=== PATIENT | male | born 1960 | race Hispanic/Latino ===

== ENCOUNTER → 2021-11-10 | Day surgery (SDC) | payer OTHER ==
[~2021-11-10] MED LIST: GAVISCON 80-141 EACH PO; LIDOCAINE HCL 2% LOCAL INJ 5 ML SDV VIAL INJ ONE; LOSARTAN POTASS25 MG PO; METFORMIN HCL1000 MG PO; PROPOFOL IV EMULSION 10 MG/ML 20 ML VIAL ONE; ZYRTEC10 M3; ZYRTEC10 MG PO
[2021-11-10 09:15] VITALS: BP 126/77
== END | disposition home or self-care (01) ==
LOC: OR 06:40
PROVIDERS: ATTEND Internal Medicine Gastroenterology
DX: Z12.11 Encounter for screening for malignant neoplasm of colon (principal); K63.5 Polyp of colon; K57.30 Diverticulosis of large intestine without perforation or abscess without bleeding; Z71.3 Dietary counseling and surveillance; E11.9 Type 2 diabetes mellitus without complications; I10 Essential (primary) hypertension; E78.5 Hyperlipidemia, unspecified; E66.9 Obesity, unspecified; Z20.822 Contact with and (suspected) exposure to COVID-19; Z79.84 Long term (current) use of oral hypoglycemic drugs; Z79.899 Other long term (current) drug therapy; Z68.33 Body mass index [BMI] 33.0-33.9, adult; Z87.891 Personal history of nicotine dependence
CPT/HCPCS: 36415; 45380; 82948; 88305; 93005; J2001; J2704; U0002; 45378